=== PATIENT | female | born 1950 | race Two or more races ===

== ENCOUNTER 2022-04-16 10:04 | Outpatient (CLI) | payer OTHER | END 2022-04-16 10:12 | disposition home or self-care (01) | LOC: RX STUDY 10:04 | PROVIDERS: ATTEND Internal Medicine | DX: R10.13 Epigastric pain (principal); D50.9 Iron deficiency anemia, unspecified ==

== ENCOUNTER 2023-08-18 12:10 | Inpatient (IN) | payer OTHER ==
[~2023-08-18] VITALS: Ht 157.5 cm; Wt 55.8 kg
[2023-08-18] MEDS ORDERED: WARFARIN SODIUM5 MG (12:29)
[2023-08-18] MEDS ORDERED: BENZONATATE200 M1 (12:29)
[2023-08-18] MEDS ORDERED: WIXELA 250-501 EACH IH (12:29)
[2023-08-18 14:24] LABS: MEAN CELL VOLUME 89.5 fL (80.00-100.00); MEAN CORPUSCULAR HGB CONC 31.8 g/dl (32.0-36.0); PLATELET COUNT 319 K/uL (150-450); RED BLOOD COUNT 2.28 M/uL (4.00-6.00); RED CELL DISTRIBUTION WIDTH 20.2 % (11.5-14.5)
[2023-08-18 14:34] LABS: MEAN CORPUSCULAR HEMOGLOBIN 28.5 pg (27.00-32.0)
[2023-08-18 14:35] LABS: HEMATOCRIT 20.4 % (36.0-45.00); HEMOGLOBIN 6.5 g/dL (12.0-15.00)
[2023-08-18 14:43] LABS: CALCIUM 8.2 mg/dL (8.5-10.1); CREATININE SERUM 1.59 mg/dL (0.55-1.02); GFR 31.74; POTASSIUM 4.3 mEq/L (3.5-5.1)
[2023-08-18 14:49] LABS: INR 5.4
[2023-08-18 14:51] LABS: ABG PH 7.321 (7.35-7.45); ABG PO2 64.5 mmHg (80-100); ABG pCO2 50.4 mmHg (35-45); BASE EXCESS -1.3 mmol/l; BICARBONATE 25.4 mmol/l (23-25); SaO2 90.1 %
[2023-08-18 14:52] LABS: allen test SATISFACTORY; o2 21 %; puncture site RADIAL RIGHT
[2023-08-18 16:31] LABS: PH,URINE 5.5 (5.0-8.0); URINE APPEARANCE Cloudy; URINE BACTERIA 60.4 uL (0.0-1933); URINE BILIRRUBIN Negative (NEGATIVE); URINE BLOOD NHT; URINE COLOR Yellow; URINE EPITHELIAL CELLS 9.2 uL (0.0-38.8); URINE GLUCOSE Negative (NEGATIVE); URINE LEUKOCYTE Trace; URINE NITRATE Negative; URINE PROTEIN Negative (NEGATIVE); URINE RBC 22.2 uL (0.0-20.8); URINE UROBILINOGEN 0.2 E.U./dl; URINE WBC 9.5 uL (0.0-23.2)
[2023-08-19 00:41] LABS: INR 5.65
[2023-08-19 00:45] LABS: PARTIAL THROMBOPLASTIN TIME 41.9 SECONDS (22.0-34.0)
[2023-08-19 00:46] LABS: PROTHROMBIN TIME 52.2 SECONDS (9.0-11.5)
[2023-08-19 07:13] LABS: INR 2.94
[2023-08-19 07:26] LABS: PROTHROMBIN TIME 28.5 SECONDS (9.0-11.5)
[2023-08-20 04:23] LABS: MEAN CELL VOLUME 85.5 fL (80.00-100.00); MEAN CORPUSCULAR HGB CONC 32.9 g/dl (32.0-36.0); PLATELET COUNT 273 K/uL (150-450); RED BLOOD COUNT 2.92 M/uL (4.00-6.00); RED CELL DISTRIBUTION WIDTH 20.9 % (11.5-14.5)
[2023-08-20 04:25] LABS: HEMATOCRIT 24.9 % (36.0-45.00); HEMOGLOBIN 8.2 g/dL (12.0-15.00)
[2023-08-20 04:46] LABS: INR 4.02
[2023-08-20 05:18] LABS: MAGNESIUM 2.3 mg/dL (1.8-2.4); PHOSPHOROUS 4.3 mg/dL (2.5-4.9)
[2023-08-20 06:03] LABS: PROTHROMBIN TIME 38.1 SECONDS (9.0-11.5)
[2023-08-20 06:04] LABS: PARTIAL THROMBOPLASTIN TIME 42.4 SECONDS (22.0-34.0)
== END 2023-08-20 14:12 | disposition home or self-care (01) | DRG 812 ==
LOC: ER 12:10 → ICU 21:48
PROVIDERS: General Practice; Internal Medicine Hematology & Oncology; ADMIT Internal Medicine; ATTEND Internal Medicine
PROC: BW21ZZZ Computerized Tomography (CT Scan) of Abdomen and Pelvis (ICD-10-PCS; 2023-08-18)
PROC: 4A12X4Z Monitoring of Cardiac Electrical Activity, External Approach (ICD-10-PCS; 2023-08-18)
PROC: 3E0F7SF Introduction of Other Gas into Respiratory Tract, Via Natural or Artificial Opening (ICD-10-PCS; 2023-08-18)
PROC: 3E0F7GC Introduction of Other Therapeutic Substance into Respiratory Tract, Via Natural or Artificial Opening (ICD-10-PCS; 2023-08-18)
PROC: 30233N1 Transfusion of Nonautologous Red Blood Cells into Peripheral Vein, Percutaneous Approach (ICD-10-PCS; principal; 2023-08-19)
DX: D50.0 Iron deficiency anemia secondary to blood loss (chronic) (principal); K92.2 Gastrointestinal hemorrhage, unspecified; J44.1 Chronic obstructive pulmonary disease with (acute) exacerbation; N17.8 Other acute kidney failure; D64.89 Other specified anemias; J45.998 Other asthma; I12.9 Hypertensive chronic kidney disease with stage 1 through stage 4 chronic kidney disease, or unspecified chronic kidney disease; E03.9 Hypothyroidism, unspecified; E11.22 Type 2 diabetes mellitus with diabetic chronic kidney disease; N18.9 Chronic kidney disease, unspecified; Z79.01 Long term (current) use of anticoagulants; Z95.4 Presence of other heart-valve replacement; Z79.4 Long term (current) use of insulin